=== PATIENT | female | born 1965 | race Caucasian/White ===

== ENCOUNTER 2018-11-17 09:40 | Emergency (ER) | payer OTHER ==
--- NOTE | 2018-11-17 09:54 | ED Physician Documentation ---
PD HPI LOWER EXT INJURY - Stated complaint Stated Complaint: LEG PX - Chief complaint Chief Complaint: Ext Problem - History obtained from History obtained from: Patient - History of Present Illness PD HPI LOW EXT INJURY LOCATION: Left, Knee, Lower leg Type of injury: No: Fall, Twist, Blunt / blow (not aware of injury, but noted development of tenderness and swelling medial knee and upper part of lower leg. There is some redness and swelling today as well. Feeling of linear firmness. No skin sores.) Timing - onset: How many days ago (2-3) Timing - duration: Days (2-3) Timing - details: Gradual onset Worsened by: Palpating Associated symptoms: Swelling, Discolored (redness of the skin in the area, linear swatch.). No: Weakness, Numbness Contributing factors: No: Anticoagulated, Prior ortho surgery Similar symptoms before: Has not had sx before (had DVT 25 years ago, but that felt different with calf pain and swelling. Has not had similar to the current symptoms in the past.) Recently seen: Clinic (went to [facility] today and referred to ER for eval and possible U/S.) Review of Systems Cardiac: denies: Chest pain / pressure, Palpitations Respiratory: denies: Dyspnea, Cough GI: denies: Abdominal Pain, Nausea, Vomiting Skin: reports: Lesions (no skin sores nor punctures. But has redness and feeling of firmness at the area) PD PAST MEDICAL HISTORY - Past Medical History Cardiovascular: Deep vein thrombosis Respiratory: None Neuro: None Endocrine/Autoimmune: None - Allergies Allergies/Adverse Reactions: Allergies Allergy/AdvReac Type Severity Reaction Status Date / Time No Known Drug Allergies Allergy Verified 11/17/18 09:47 PD ED PE NORMAL - Vitals Vital signs reviewed: Yes - General General: Alert and oriented X 3, No acute distress, Well developed/nourished - Cardiac Cardiac: RRR, No murmur - Respiratory Respiratory: Clear bilaterally - Derm Derm: Normal color, Warm and dry, Other (left medial upper lower leg with firm and tender linear tissue under the skin with skin redness and warmth along the line of it, up to the medial lower thigh. No streaking proximal to that. ) - Extremities Extremities: Other (No edema generally in the lower leg, and the posterior calf is not tender per se, just tenderness medial proximal lower leg and medial aspect of the knee, in linear firm way.) Results - Vitals Vitals: Vital Signs - 24 hr 11/17/18 11/17/18 11/17/18 09:42 09:53 11:16 Temperature 36.9 C Heart Rate 73 76 Respiratory 14 18 18 Rate Blood Pressure 182/73 H 182/79 H O2 Saturation 97 96 Oxygen O2 Source Room air - Rads (name of study) duplex left leg Radiology: Prelim report reviewed (no DVT; superficial phlebitis seen in area of tenderness. ), See rad report PD MEDICAL DECISION MAKING - ED course Complexity details: reviewed results (no DVT seen; SVT noted on U/S c/w clinical finding), considered differential, d/w patient Departure - Departure Disposition: Home, Self Care Clinical Impression: Superficial thrombophlebitis Qualifiers: Superficial thrombophlebitis-Involved body area: lower extremity Laterality: left Qualified Code(s): I80.02 - Phlebitis and thrombophlebitis of superficial vessels of left lower extremity Record reviewed to determine appropriate education?: Yes Instructions: ED Phlebitis Superficial Follow-Up: [facility] [Primary Care Provider] - Comments: Use some anti-inflammatories such as naproxen or ibuprofen 2 to 3 tablets twice daily for the next week. You could add an aspirin a day as well. Use some warm moist towels or compresses or soaks to the area to help soften the clot in the vein and promote reabsorption. Your ultrasound does not show any signs of deep vein clots. If you have increasing swelling of the lower leg generally or pain more diffusely in the leg, it is possible for the surface veins to extend into the deep veins and you would want to have it rechecked in a week or so if you are having increased symptoms. Discharge Date/Time: 11/17/18 11:16
[2018-11-17] MEDS ORDERED: NAPROXEN 250 MG TABLET PO STA (10:04)
[2018-11-17] MEDS ORDERED: ACETAMINOPHEN 325 MG TABLET PO STA (10:04)
--- NOTE | 2018-11-17 10:56 | Ultrasound Report ---
Reason: left medial calf phlebitis; ensure not deeper Procedure Date: 11/17/2018 Accession Number: [id number] / [id number] Procedure: US - Duplex Ext Veins Left CPT Code: FULL RESULT: EXAM: LEFT LOWER EXTREMITY VENOUS ULTRASOUND EXAM DATE: 11/17/2018 10:21 AM. CLINICAL HISTORY: Left medial calf phlebitis; ensure not deeper. COMPARISON: None. TECHNIQUE: Real-time sonographic vascular imaging was performed by the corporate travel expert through the lower extremity utilizing both color-flow and Doppler spectral analysis. Multiple hospital sales representative static images were saved for review. FINDINGS: Common Femoral Vein (CFV): Normal. CFV-GSV Junction: Normal. Profunda Femoral Vein (PFV): Normal. Femoral Vein (FV) Prox: Normal. Femoral Vein (FV) Mid: Normal. Femoral Vein (FV) Dist: Normal. Popliteal Vein: Normal. Posterior Tibial Veins: Normal. Peroneal Veins: Normal. Other: At the level of the knee, thrombosed varicose veins are seen superficially with a caliber of up to 0.8 cm. IMPRESSION: No evidence for deep venous thrombosis. Suspect superficial venous thrombophlebitis. RADIA
[2018-11-17 11:17] VITALS: BP 182/79
== END 2018-11-17 11:16 | disposition home or self-care (01) ==
LOC: ED 09:40
DX: I80.02 Phlebitis and thrombophlebitis of superficial vessels of left lower extremity (principal); Z86.718 Personal history of other venous thrombosis and embolism
CPT/HCPCS: 93971; 99282; 99283; A9270

== ENCOUNTER 2022-01-07 09:21 | Outpatient (CLI) | payer OTHER ==
--- NOTE | 2022-01-08 08:20 | Mammography Report ---
BILATERAL DIGITAL SCREENING MAMMOGRAM 3D/2D: 01/07/2022 CLINICAL: Routine screening. Comparison is made to exam dated: 10/07/2014 mammogram - [facility]. There are sca ttered fibroglandular elements in both breasts. There are benign calcifications in the left breast. No significant masses, calcifications, or other findings are seen in either breast. There has been no significant interval change. IMPRESSION: BENIGN There is no mammographic evidence of malignancy. A 1 year screening mammogram is recommended. Based on the Tyrer Cuzick model (a risk assessment model) the patients lifetime risk is 6.0% and her 10 year risk is 2.0%. According to the ACR, ACS, and NCCN guidelines, an annual breast MRI exam favian g with mammogram is recommended if the patients lifetime risk is 20% or greater. This exam was interpreted at Station ID: [id number]. NOTE: For mammograms, a report in lay terms will be sent to the patient. Approximately 15% of breast malignancies will not be visualized mammographically. In the management of a palpable breast mass, a negative mammogram must not discourage biopsy of a clinically suspicious lesion. Electronically Signed By: Dianelys [email or web address]:01/07/2022 11:34:02 ACR BI-RADS Category 2: Benign Finding(s) 3342F PARENCHYMAL PATTERN: (A) - The breast(s) demonstrate(s) scattered fibroglandular densities. BI-RADS CATEGORY: (2) - 2 RECOMMENDATION: (ANNUAL) - Recommend routine annual screening mammography. [id number] 1 year screening LATERALITY: (B)
== END 2022-01-07 09:22 | disposition home or self-care (01) ==
LOC: DI.N 09:21
PROVIDERS: ATTEND Physician Assistant
DX: Z12.31 Encounter for screening mammogram for malignant neoplasm of breast (principal)

== ENCOUNTER 2022-01-21 06:50 | Outpatient (CLI) | payer OTHER ==
--- NOTE | 2022-01-21 09:41 | Ultrasound Report ---
PROCEDURE: Duplex Ext Veins Bilateral INDICATIONS: Lower extremity swelling, left greater than right; history of deep venous thrombosis, p hlebitis, varicose veins TECHNIQUE: Real-time imaging, as well as color and pulse Doppler interrogation, were performed of the deep veins of both legs from the inguinal ligament to the popliteal fossa. COMPARISON: 11/17/2018 FINDINGS: The right deep veins are normally compressible, and free of intraluminal thrombus. Color and pulse Doppler demonstrate normal phasic intravascular flow. There is normal augmentation respons e to distal compression maneuver. There is a 4.8 x 1.8 x 3.6 cm French's/popliteal cyst on the right with fluid extending into the knee joint. There is minimal eccentric intraluminal thrombus noted in the left popliteal vein compatible with chr onic thrombus. Left calf veins were not well seen secondary to subcutaneous soft tissue edema of the lower leg. Remainder of the visualized left deep veins are normally compressible, and free of intralu roberto thrombus. Color and pulse Doppler demonstrate normal phasic intravascular flow. There is norm al augmentation response to distal compression maneuver. IMPRESSION: 1. Chronic appearing deep venous thrombus of the left popliteal vein. 2. Negative for deep venous thrombosis of the right lower extremity. 3. A 4.8 cm right French/popliteal cyst. Reviewed by: Lalo Bower MD on 01/21/2022 9:40 AM PDT Approved by: Lalo Bower MD on 01/21/2022 9:40 AM PDT Station ID: [id number]
== END 2022-01-21 06:51 | disposition home or self-care (01) ==
LOC: DI 06:50
PROVIDERS: ATTEND Internal Medicine
DX: I82.532 Chronic embolism and thrombosis of left popliteal vein (principal); M71.21 Synovial cyst of popliteal space [Baker], right knee
CPT/HCPCS: 93970